=== PATIENT | male | born 1955 | race Caucasian/White ===

== ENCOUNTER 2019-03-21 06:29 | Observation (INO) ==
[2019-03-21] MEDS ORDERED: Ondansetron 4 MG/2 ML VIAL IVP ONE (06:43)
[2019-03-21] MEDS ORDERED: 0.9 % Sodium Chloride 1,000 ML IVC ONE (06:43)
--- NOTE | 2019-03-21 06:53 | Emergency Department Note ---
Disposition Clinical Impression: Pancreatitis, acute Qualifiers: Pancreatitis type: unspecified pancreatitis type Acute pancreatitis complication: unspecified Qualified Code(s): K85.90 - Acute pancreatitis without necrosis or infection, unspecified Disposition: Admitted As Inpatient Condition: Good Forms: ED Satisfaction Letter Nausea/Vomiting/Diarrhea HPI - General Chief complaint: ED Nausea/Vomiting/Diarrhea Stated complaint: n/v x 5 days Time Seen by Provider: 03/21/19 06:35 Source: patient Mode of arrival: private vehicle Limitations: no limitations Nursing Notes Reviewed: Yes Vital Signs Reviewed: Yes - History of Present Illness Pt Subjective Complaint: nausea, vomiting, diarrhea, abdominal pain Onset (ago): week(s) (1) Description of emesis: food contents, watery Number of episodes of emesis: 3 Description of Diarrhea: water Number of episodes: 3 Associated Abdominal Pain: Yes If pain, Location of pain: diffuse Radiation: diffuse Severity: mild Quality: cramping Consistency: constant Improves with: nothing Worsens with: nonthing Context: other (Started a new medication for diabetes two weeks ago and thinks this may be the cause of his symptoms.) Associated symptoms: Reports: loss of appetite, malaise, nausea/vomiting. Denies: myalgias, chest pain, cough, diaphoresis, fever/chills, headaches, rash, dysuria, shortness of breath, syncope, weakness - Related Data Home Medications Medication Instructions Recorded Confirmed Atorvastatin Calcium [Lipitor] 20 mg PO DAILY 04/24/16 06/16/16 Clopidogrel [Plavix] 75 mg PO DAILY 04/24/16 06/16/16 Linagliptin [Tradjenta] 5 mg PO DAILY 04/24/16 06/16/16 Metoprolol [Lopressor] 25 mg PO BID 04/24/16 06/16/16 Potassium Citrate [Urocit-K] 10 meq PO DAILY 04/24/16 06/16/16 lamoTRIgine [Lamictal] 200 mg PO HS 06/15/16 06/16/16 Bupropion HCl [Wellbutrin Xl] 300 mg PO DAILY 06/16/16 06/16/16 Quetiapine Fumarate [Seroquel] 50 mg PO BID 06/16/16 06/16/16 Previous Rx's Medication Instructions Recorded Azithromycin [Zithromax] 0 tab PO DAILY #6 tablet 05/18/17 Benzonatate [Tessalon] 200 mg PO TID #20 capsule 05/18/17 Doxycycline 100 mg PO BID #14 capsule 05/28/17 GuaiFENesin/Codeine [Robitussin 5 ml PO Q6HR PRN #120 liquid 05/28/17 w/Codeine] Loratadine [Allergy Relief] 10 mg PO DAILY #30 tablet 05/28/17 Clindamycin HCl [Cleocin HCl] 300 mg PO TID #30 cap 06/30/17 Cyclobenzaprine [Flexeril] 10 mg PO TID #15 tablet 08/04/18 Lidocaine Patch [Lidoderm 5% patch] 1 each TP DAILY #10 adh..patch 08/04/18 Allergies Allergy/AdvReac Type Severity Reaction Status Date / Time oxcarbazepine Allergy Itching Verified 03/11/19 04:12 [From Trileptal] oxycodone [From Percocet] Allergy Itching Verified 03/11/19 04:12 Penicillins [PCN] Allergy Itching Verified 03/11/19 04:12 Past Medical History - Past Medical History Medical history: Reports: coronary artery disease, diabetes, hyperlipidemia, hypertension, kidney stones, renal disease Surgical history: Reports: angioplasty/stent Psychiatric history: Reports: depression - Social History Smoking Status: Never smoker Smokeless Tobacco Status: No Alcohol use: Reports: none Drug use: Reports: none Physical Exam - General Limitations: no limitations General appearance: alert, in no apparent distress - Head Head exam: atraumatic, normocephalic, normal inspection - Eye Eye exam: Present: normal appearance, PERRL. Absent: scleral icterus, conjunctival injection, nystagmus, miosis, mydriasis, periorbital tenderness - ENT ENT exam: mucous membranes moist - Neck Neck exam: Present: normal inspection, full ROM, trachea midline - Chest Chest inspection: Present: normal inspection - Respiratory Respiratory exam: Present: normal lung sounds bilaterally. Absent: respiratory distress - Cardiovascular Cardiovascular exam: Present: regular rate, normal rhythm, irregular rhythm - Abdominal Exam Abdominal exam: Present: soft, tenderness, diminished bowel sounds. Absent: distention, guarding, rebound, rigidity, organomegaly, ascites, mass, pulsatile mass Abdominal tenderness: Present: LUQ, epigastrium - Extremities Exam Extremities exam: Present: normal inspection - Back Exam Back exam: Present: normal inspection - Neurological Exam Neurological exam: Present: alert, oriented X3, CN II-XII intact, normal gait - Psychiatric Psychiatric exam: Present: normal affect, anxious - Skin Skin exam: Present: warm, dry, intact, normal color Course Course Narrative: Patient to ED from home for evaluation of abdominal pain with nausea, vomiting and diarrhea for about a week. He also has had decreased appetite and some weight loss. He believes his symptoms are related to a new diabetes medication (exenatide) that he was started on about three weeks ago. He denies fever, c hills, hematemesis, melena, hematochezia, dizziness, vertigo, syncope, chest pain, shortness of breath or rash. On exam, he has normal vitals with the exception of mildly elevated blood pressure, tenderness to palpation in epigastrium, left and right upper quadrants without guarding, rebound tender ness, or other peritoneal signs. Bowel sounds are slightly decreased in all four quadrants. Labs, fluids and meds have been ordered. Labs show a mildly elevated lipase at 178. Otherwise unremarkable. We will obtain CT of the abdomen and pelvis with IV contrast to further evaluate. Case discussed with Dr. Martinez. He has had [id number] time with patient and agrees with the assessment and plan. CT shows mild edema around the pancreatic head and bilat renal stones. Plan is to admit the patient. - Reevaluation(s) Reevaluation #1: Patient feeling better but wants to eat/drink. VSS Time: 08:55 Reevaluation #2: Pt c/o nausea. Meds ordered. Hospitalist contacted. Patient accepted for admission Time: 09:56 Vital Signs Temperature 98.0 F 03/21/19 06:34 Pulse Rate 91 03/21/19 06:34 Respiratory Rate 18 03/21/19 06:34 Blood Pressure 164/68 03/21/19 06:34 O2 Sat by Pulse Oximetry 100 03/21/19 06:34 Temperature 98.0 F 03/21/19 06:34 Pulse Rate 85 03/21/19 08:11 Respiratory Rate 18 03/21/19 06:34 Blood Pressure 151/70 03/21/19 08:11 O2 Sat by Pulse Oximetry 100 03/21/19 06:34 Oxygen Delivery Oxygen Delivery Room Air Nausea/Vomiting/Diarrhea - Medical Records Medical records reviewed: Yes I reviewed the patient's medical records. - Lab Data Lab results reviewed: Yes I reviewed the patient's lab results. Lab results narrative: Laboratory Last Values WBC 11.0 K/mcL (4.3-11.1) 03/21/19 06:46 RBC 3.89 M/mcL (4.19-5.50) L 03/21/19 06:46 Hgb 13.0 g/dL (12.9-16.9) 03/21/19 06:46 Hct 38.5 % (37.5-50.1) 03/21/19 06:46 MCV 99.0 fL (83.0-100.0) 03/21/19 06:46 MCH 33.4 pg (28.0-33.3) H 03/21/19 06:46 MCHC 33.8 g/dL (31.6-35.5) 03/21/19 06:46 RDW 13.1 % (11.5-14.5) 03/21/19 06:46 Plt Count 252 K/mcL (140-400) 03/21/19 06:46 MPV 8.6 fL (9.4-12.4) L 03/21/19 06:46 Immature Gran % 1.1 % (0-4) 03/21/19 06:46 Seg Neutrophils % 59.8 % 03/21/19 06:46 25.0 % 03/21/19 06:46 10.3 % 03/21/19 06:46 3.3 % 03/21/19 06:46 0.5 % 03/21/19 06:46 6.6 K/mcL (1.6-8.9) 03/21/19 06:46 2.7 K/mcL (0.6-4.6) 03/21/19 06:46 1.1 K/mcL (0.0-1.3) 03/21/19 06:46 0.4 K/mcL (0.0-0.6) 03/21/19 06:46 0.1 K/mcL (0.0-0.2) 03/21/19 06:46 Sodium 138 mEq/L (136-145) 03/21/19 06:46 Potassium 4.2 mEq/L (3.5-5.1) 03/21/19 06:46 Chloride 105 mEq/L (98-107) 03/21/19 06:46 Carbon Dioxide 23 mEq/L (23-29) 03/21/19 06:46 BUN 23 mg/dL (8-23) 03/21/19 06:46 1.30 mg/dL (0.70-1.30) 03/21/19 06:46 Est GFR ( Amer) > 60 (> 60) 03/21/19 06:46 Est GFR (Non-Af Amer) 55 (> 60) L 03/21/19 06:46 18 (6-26) 03/21/19 06:46 Glucose 126 mg/dL (70-105) H 03/21/19 06:46 291 (280-300) 03/21/19 06:46 Calcium 9.2 mg/dL (8.6-10.3) 03/21/19 06:46 0.5 mg/dL (0.3-1.0) 03/21/19 06:46 AST 22 Units/L (13-39) 03/21/19 06:46 ALT 31 Units/L (7-52) 03/21/19 06:46 61 Units/L (34-104) 03/21/19 06:46 7.3 g/dL (6.4-8.9) 03/21/19 06:46 4.1 g/dL (3.5-5.7) 03/21/19 06:46 3.2 g/dL (2.4-3.5) 03/21/19 06:46 1.3 (1.1-2.2) 03/21/19 06:46 178 Units/L (11-82) H 03/21/19 06:46 Ur Specimen Adequacy See below A 03/21/19 08:10 Yellow (Yellow) 03/21/19 08:10 Clear (Clear) 03/21/19 08:10 6.0 pH Units (5.0-8.0) 03/21/19 08:10 Ur Specific [place] 1.018 (1.010-1.025) 03/21/19 08:10 Negative mg/dL (Neg-Trace) 03/21/19 08:10 Normal mg/dL (Normal) 03/21/19 08:10 Negative mg/dL (Negative) 03/21/19 08:10 Negative (Negative) 03/21/19 08:10 Negative (Negative) 03/21/19 08:10 Negative (Negative) 03/21/19 08:10 Normal mg/dL (Normal) 03/21/19 08:10 Ur Leukocyte Esterase Negative (Negative) 03/21/19 08:10 Ur Culture Indicated? NO (NO) 03/21/19 08:10 Result diagrams: 03/21/19 06:46 03/21/19 06:46 Lab Results 03/21/19 03/21/19 Range/Units 06:46 06:46 WBC 11.0 (4.3-11.1) K/mcL RBC 3.89 L (4.19-5.50) M/mcL Hgb 13.0 (12.9-16.9) g/dL Hct 38.5 (37.5-50.1) % MCV 99.0 (83.0-100.0) fL MCH 33.4 H (28.0-33.3) pg MCHC 33.8 (31.6-35.5) g/dL RDW 13.1 (11.5-14.5) % Plt Count 252 (140-400) K/mcL MPV 8.6 L (9.4-12.4) fL Immature Gran % 1.1 (0-4) % Seg Neutrophils % 59.8 % Lymphocytes % 25.0 % Monocytes % 10.3 % Eosinophils % 3.3 % Basophils % 0.5 % Neutrophils # 6.6 (1.6-8.9) K/mcL Lymphocytes # 2.7 (0.6-4.6) K/mcL Monocytes # 1.1 (0.0-1.3) K/mcL Eosinophils # 0.4 (0.0-0.6) K/mcL Basophils # 0.1 (0.0-0.2) K/mcL Sodium 138 (136-145) mEq/L Potassium 4.2 (3.5-5.1) mEq/L Chloride 105 (98-107) mEq/L Carbon Dioxide 23 (23-29) mEq/L BUN 23 (8-23) mg/dL Creatinine 1.30 (0.70-1.30) mg/dL Est GFR ( Amer) > 60 (> 60) Est GFR (Non-Af Amer) 55 L (> 60) BUN/Creatinine Ratio 18 (6-26) Glucose 126 H (70-105) mg/dL Calculated Osmolality 291 (280-300) Calcium 9.2 (8.6-10.3) mg/dL Total Bilirubin 0.5 (0.3-1.0) mg/dL AST 22 (13-39) Units/L ALT 31 (7-52) Units/L Alkaline Phosphatase 61 (34-104) Units/L Serum Total Protein 7.3 (6.4-8.9) g/dL Albumin 4.1 (3.5-5.7) g/dL Globulin 3.2 (2.4-3.5) g/dL Albumin/Globulin Ratio 1.3 (1.1-2.2) Lipase 178 H (11-82) Units/L - Radiology Data Radiology results reviewed: Yes I reviewed the patient's radiology results. Abdomen/Pelvis CT 03/21/19 08:22 IMPRESSION: 1. Minimal pancreatic edema involving the tail of the pancreas. Correlate clinical evidence of acute pancreatitis. 2. Nonobstructing bilateral renal calculi. D/ / 03/21/2019 09:12:45 Alex Galindo MD / [facility] Interpreting Provider: Alex Galindo MD
[2019-03-21 06:55] LABS: Basophils # 0.1 K/mcL (0.0-0.2); Basophils % 0.5 %; Eosinophils # 0.4 K/mcL (0.0-0.6); Eosinophils % 3.3 %; Hematocrit 38.5 % (37.5-50.1); Immature Granulocytes % 1.1 % (0-4); Lymphocytes # 2.7 K/mcL (0.6-4.6); Mean Corpuscular HGB Conc 33.8 g/dL (31.6-35.5); Mean Corpuscular Hemoglobin 33.4 pg (28.0-33.3); Mean Platelet Volume 8.6 fL (9.4-12.4); Monocytes # 1.1 K/mcL (0.0-1.3); Monocytes % 10.3 %; Neutrophils # 6.6 K/mcL (1.6-8.9); Platelet Count 252 K/mcL (140-400); Red Blood Count 3.89 M/mcL (4.19-5.50); Red Cell Distribution Width 13.1 % (11.5-14.5); Segmented Neutrophils % 59.8 %
[2019-03-21 07:16] LABS: Alanine Aminotransferase 31 Units/L (7-52); Albumin 4.1 g/dL (3.5-5.7); Albumin/Globulin Ratio 1.3 (1.1-2.2); Alkaline Phosphatase 61 Units/L (34-104); Aspartate Amino Transferase 22 Units/L (13-39); BUN/Creatinine Ratio 18 (6-26); Bilirubin,Total 0.5 mg/dL (0.3-1.0); Blood Urea Nitrogen 23 mg/dL (8-23); Calcium 9.2 mg/dL (8.6-10.3); Carbon Dioxide 23 mEq/L (23-29); Chloride 105 mEq/L (98-107); Globulin 3.2 g/dL (2.4-3.5); Glucose 126 mg/dL (70-105); Lipase 178 Units/L (11-82); Osmolality,Calculated 291 (280-300); Potassium 4.2 mEq/L (3.5-5.1); Sodium 138 mEq/L (136-145); Total Protein 7.3 g/dL (6.4-8.9); eGFR For Non-African Americans 55 (> 60)
[2019-03-21 08:20] LABS: Bilirubin,Urine Negative (Negative); Blood,Urine Negative (Negative); Clarity,Urine Clear (Clear); Color,Urine Yellow (Yellow); Glucose,Urine (UA) Normal (Normal); Ketones,Urine Negative (Negative); Leukocyte Esterase,Urine Negative (Negative); Nitrite,Urine Negative (Negative); Protein,Urine Negative (Neg-Trace); Specific Gravity,Urine 1.018 (1.010-1.025); Urobilinogen,Urine Normal (Normal)
[2019-03-21] MEDS ORDERED: Isovue-370 500 ML BOTTLE IVP ONE (08:22)
--- NOTE | 2019-03-21 09:19 | Emergency Department Note ---
Disposition Clinical Impression: Pancreatitis, acute Disposition: Admitted As Inpatient Condition: Good General Adult HPI - General Chief complaint: ED Nausea/Vomiting/Diarrhea Stated complaint: n/v x 5 days Time Seen by Provider: 03/21/19 06:35 Source: patient Mode of arrival: private vehicle Limitations: no limitations Nursing Notes Reviewed: Yes Vital Signs Reviewed: Yes - History of Present Illness Pain Scale: 7 - Related Data Home Medications Medication Instructions Recorded Confirmed Clopidogrel [Plavix] 75 mg PO DAILY 04/24/16 03/21/19 Linagliptin [Tradjenta] 5 mg PO DAILY 04/24/16 03/21/19 Metoprolol [Lopressor] 25 mg PO BID 04/24/16 03/21/19 Bupropion HCl [Wellbutrin Xl] 300 mg PO DAILY 06/16/16 03/21/19 DiphenhydraMINE [Benadryl] 25 - 50 mg PO DAILY PRN 03/21/19 03/21/19 Exenatide Microspheres [Bydureon 2 mg SQ LEON 03/21/19 03/21/19 Pen] Losartan [Cozaar] 25 mg PO DAILY 03/21/19 03/21/19 Pravastatin Sodium 10 mg PO DAILY 03/21/19 03/21/19 glipiZIDE [Glucotrol] 5 mg PO DAILY 03/21/19 03/21/19 lamoTRIgine [Lamotrigine] 200 mg PO DAILY 03/21/19 03/21/19 raNITIdine HCl [Zantac] 150 mg PO BID PRN 03/21/19 03/21/19 Allergies Allergy/AdvReac Type Severity Reaction Status Date / Time oxcarbazepine Allergy "HEADACHE, Verified 03/21/19 13:54 [From Trileptal] BLOOD PRESSURE WAS SOMETHING" oxycodone [From Percocet] Allergy "RASH, Verified 03/21/19 13:54 ITCHING" Penicillins [PCN] Allergy "RASH, Verified 03/21/19 13:54 ITCHING" Past Medical History - Past Medical History Medical history: Reports: coronary artery disease, diabetes, hyperlipidemia, hypertension, kidney stones, renal disease Surgical history: Reports: angioplasty/stent Psychiatric history: Reports: depression - Social History Smoking Status: Never smoker Smokeless Tobacco Status: No Alcohol use: Reports: none Drug use: Reports: none Physical Exam - General Limitations: no limitations General appearance: alert, in no apparent distress Course Vital Signs Temperature 98.0 F 03/21/19 06:34 Pulse Rate 91 03/21/19 06:34 Respiratory Rate 18 03/21/19 06:34 Blood Pressure 164/68 03/21/19 06:34 O2 Sat by Pulse Oximetry 100 03/21/19 06:34 Temperature 98.8 F 03/21/19 15:22 Pulse Rate 89 03/21/19 15:22 Respiratory Rate 15 03/21/19 15:22 Blood Pressure 126/63 03/21/19 15:22 O2 Sat by Pulse Oximetry 97 03/21/19 15:22 Oxygen Delivery Oxygen Delivery Room Air Medical Decision Making - MDM Narrative Medical decision making narrative: Abdomen/Pelvis CT 03/21/19 08:22 IMPRESSION: 1. Minimal pancreatic edema involving the tail of the pancreas. Correlate clinical evidence of acute pancreatitis. 2. Nonobstructing bilateral renal calculi. D/ / 03/21/2019 09:12:45 Alex Galindo MD / [facility] Interpreting Provider: Alex Galindo MD 0920 hrs.: His CT does look like pancreatitis as well as his lipase. We will bring him into the hospital. - Lab Data Result diagrams: 03/21/19 06:46 03/21/19 06:46 Lab Results 03/21/19 03/21/19 03/21/19 Range/Units 06:35 06:46 06:46 WBC 11.0 (4.3-11.1) K/mcL RBC 3.89 L (4.19-5.50) M/mcL Hgb 13.0 (12.9-16.9) g/dL Hct 38.5 (37.5-50.1) % MCV 99.0 (83.0-100.0) fL MCH 33.4 H (28.0-33.3) pg MCHC 33.8 (31.6-35.5) g/dL RDW 13.1 (11.5-14.5) % Plt Count 252 (140-400) K/mcL MPV 8.6 L (9.4-12.4) fL Immature Gran % 1.1 (0-4) % Seg Neutrophils % 59.8 % Lymphocytes % 25.0 % Monocytes % 10.3 % Eosinophils % 3.3 % Basophils % 0.5 % Neutrophils # 6.6 (1.6-8.9) K/mcL Lymphocytes # 2.7 (0.6-4.6) K/mcL Monocytes # 1.1 (0.0-1.3) K/mcL Eosinophils # 0.4 (0.0-0.6) K/mcL Basophils # 0.1 (0.0-0.2) K/mcL Sodium 138 (136-145) mEq/L Potassium 4.2 (3.5-5.1) mEq/L Chloride 105 (98-107) mEq/L Carbon Dioxide 23 (23-29) mEq/L BUN 23 (8-23) mg/dL Creatinine 1.30 (0.70-1.30) mg/dL Est GFR ( Amer) > 60 (> 60) Est GFR (Non-Af Amer) 55 L (> 60) BUN/Creatinine Ratio 18 (6-26) Glucose 126 H (70-105) mg/dL POC Glucose 103 H (70-99) mg/dL Est Mean Plasma Glucose mg/dl Hemoglobin A1c ( - 5.6) % Calculated Osmolality 291 (280-300) Calcium 9.2 (8.6-10.3) mg/dL Total Bilirubin 0.5 (0.3-1.0) mg/dL AST 22 (13-39) Units/L ALT 31 (7-52) Units/L Alkaline Phosphatase 61 (34-104) Units/L Serum Total Protein 7.3 (6.4-8.9) g/dL Albumin 4.1 (3.5-5.7) g/dL Globulin 3.2 (2.4-3.5) g/dL Albumin/Globulin Ratio 1.3 (1.1-2.2) Lipase 178 H (11-82) Units/L Ur Specimen Adequacy Urine Color (Yellow) Urine Clarity (Clear) Urine pH (5.0-8.0) pH Units Ur Specific [place] (1.010-1.025) Urine Protein (Neg-Trace) mg/dL Urine Glucose (UA) (Normal) mg/dL Urine Ketones (Negative) mg/dL Urine Blood (Negative) Urine Nitrite (Negative) Urine Bilirubin (Negative) Urine Urobilinogen (Normal) mg/dL Ur Leukocyte Esterase (Negative) Ur Culture Indicated? (NO) 03/21/19 03/21/19 Range/Units 06:46 08:10 WBC (4.3-11.1) K/mcL RBC (4.19-5.50) M/mcL Hgb (12.9-16.9) g/dL Hct (37.5-50.1) % MCV (83.0-100.0) fL MCH (28.0-33.3) pg MCHC (31.6-35.5) g/dL RDW (11.5-14.5) % Plt Count (140-400) K/mcL MPV (9.4-12.4) fL Immature Gran % (0-4) % Seg Neutrophils % % Lymphocytes % % Monocytes % % Eosinophils % % Basophils % % Neutrophils # (1.6-8.9) K/mcL Lymphocytes # (0.6-4.6) K/mcL Monocytes # (0.0-1.3) K/mcL Eosinophils # (0.0-0.6) K/mcL Basophils # (0.0-0.2) K/mcL Sodium (136-145) mEq/L Potassium (3.5-5.1) mEq/L Chloride (98-107) mEq/L Carbon Dioxide (23-29) mEq/L BUN (8-23) mg/dL Creatinine (0.70-1.30) mg/dL Est GFR ( Amer) (> 60) Est GFR (Non-Af Amer) (> 60) BUN/Creatinine Ratio (6-26) Glucose (70-105) mg/dL POC Glucose (70-99) mg/dL Est Mean Plasma Glucose 186 mg/dl Hemoglobin A1c 8.1 H ( - 5.6) % Calculated Osmolality (280-300) Calcium (8.6-10.3) mg/dL Total Bilirubin (0.3-1.0) mg/dL AST (13-39) Units/L ALT (7-52) Units/L Alkaline Phosphatase (34-104) Units/L Serum Total Protein (6.4-8.9) g/dL Albumin (3.5-5.7) g/dL Globulin (2.4-3.5) g/dL Albumin/Globulin Ratio (1.1-2.2) Lipase (11-82) Units/L Ur Specimen Adequacy See below A Urine Color Yellow (Yellow) Urine Clarity Clear (Clear) Urine pH 6.0 (5.0-8.0) pH Units Ur Specific [place] 1.018 (1.010-1.025) Urine Protein Negative (Neg-Trace) mg/dL Urine Glucose (UA) Normal (Normal) mg/dL Urine Ketones Negative (Negative) mg/dL Urine Blood Negative (Negative) Urine Nitrite Negative (Negative) Urine Bilirubin Negative (Negative) Urine Urobilinogen Normal (Normal) mg/dL Ur Leukocyte Esterase Negative (Negative) Ur Culture Indicated? NO (NO) Attestation Statement - Attestation Attestation: This documentation is done with the assistance of Dragon dictation. Despite efforts made to ensure accuracy, there may be inaccuracies in technology director or spelling and typographical errors. I have personally performed a face to face evaluation on this patient. I have reviewed and agree with the care plan. History and Exam by me shows: Patient seen and evaluated by Hortencia Dumont and myself, I agree with her evaluation management plan. Patient's having some nausea vomiting and watery stool. Has started a new insulin for his diabetes is uncertain if this could be related or not. He does have elevation in his lipase no history of pancreatitis per him he does have elevated cholesterol. Going to do CT of his abdomen and reassess and determine admission versus home. He is in agreement with this plan.
[2019-03-21] MEDS ORDERED: Naloxone 0.4 MG/ML INJ IVP PRN (09:57)
[2019-03-21] MEDS ORDERED: traMADol 50 MG TABLET PO PRN (10:01)
[2019-03-21] MEDS ORDERED: Ketorolac 15 MG/ML VIAL IVP PRN (10:01)
[2019-03-21] MEDS ORDERED: Dextrose Gel 15 GM/37.5 ML TUBE PO PRN ×2 (10:03)
[2019-03-21] MEDS ORDERED: D5% in Water 1,000 ML IVC PRN (10:03)
[2019-03-21] MEDS ORDERED: *HR* Dextrose 50 % in Water (Syg) 50 ML SYRINGE IVP PRN (10:03)
[2019-03-21] MEDS ORDERED: Promethazine 25 MG in 0.9 % Sodium Chloride 50 ML IVPB ONE (10:10)
[2019-03-21] MEDS ORDERED: Ondansetron 4 MG/2 ML VIAL IVP PRN (10:59)
[2019-03-21 11:04] LABS: Estimated Average Glucose 186 mg/dl; Hemoglobin A1C 8.1 %
--- NOTE | 2019-03-21 11:04 | Anesthesia Evaluation PreOp ---
Date of Encounter: 03/21/19 Time of Encounter: 10:57 - Past History Planned Operation: EGD Alcohol Use: none Drug use: none Medications and Allergies Atorvastatin Calcium [Lipitor] 20 mg PO DAILY 04/24/16 [History] Clopidogrel [Plavix] 75 mg PO DAILY 04/24/16 [History] Linagliptin [Tradjenta] 5 mg PO DAILY 04/24/16 [History] Metoprolol [Lopressor] 25 mg PO BID 04/24/16 [History] Potassium Citrate [Urocit-K] 10 meq PO DAILY 04/24/16 [History] lamoTRIgine [Lamictal] 200 mg PO HS 06/15/16 [History] Bupropion HCl [Wellbutrin Xl] 300 mg PO DAILY 06/16/16 [History] Quetiapine Fumarate [Seroquel] 50 mg PO BID 06/16/16 [History] Azithromycin [Zithromax] 0 tab PO DAILY #6 tablet 05/18/17 [Rx] Benzonatate [Tessalon] 200 mg PO TID #20 capsule 05/18/17 [Rx] Doxycycline 100 mg PO BID #14 capsule 05/28/17 [Rx] GuaiFENesin/Codeine [Robitussin w/Codeine] 5 ml PO Q6HR PRN #120 liquid 05/28/17 [Rx] Loratadine [Allergy Relief] 10 mg PO DAILY #30 tablet 05/28/17 [Rx] Clindamycin HCl [Cleocin HCl] 300 mg PO TID #30 cap 06/30/17 [Rx] Cyclobenzaprine [Flexeril] 10 mg PO TID #15 tablet 08/04/18 [Rx] Lidocaine Patch [Lidoderm 5% patch] 1 each TP DAILY #10 adh..patch 08/04/18 [Rx] Bydureon Pen SQ 03/21/19 [History] Allergy/AdvReac Type Severity Reaction Status Date / Time oxcarbazepine Allergy Itching Verified 03/11/19 04:12 [From Trileptal] oxycodone [From Percocet] Allergy Itching Verified 03/11/19 04:12 Penicillins [PCN] Allergy Itching Verified 03/11/19 04:12 Anesthesia Results - Labs 03/21/19 06:46 03/21/19 06:46 - Imaging EKG: report reviewed (SINUS RHYTHM RIGHT BUNDLE BRANCH BLOCK) Anesthesia Exam Vital Signs/O2 Sat, Most Current Temp Pulse Resp BP Pulse Ox 98.0 F 85 16 147/90 100 03/21/19 06:34 03/21/19 08:11 03/21/19 10:52 03/21/19 10:52 03/21/19 06:34 NPO (# of Hours): > 8 hrs Pain Scale: 0 Pain Scale Used: Numeric (1 - 10)
--- NOTE | 2019-03-21 11:09 | Internal Med History&Physical ---
Date of Encounter: 03/21/19 Time of Encounter: 10:00 Internal Medicine - H&P: HPI Chief complaint: Intermittent nausea and vomiting and abdominal pain for 3 days History of present illness: Mr. Pickard is a 63 year old male with pmh of diabetes, dyslipidemia recently started on weekly exenatide injections 3 weeks ago presenting with complaints of nausea, vomiting , abdominal pain and diarrhea of about 2 days duration. Patient notes his A1c went up to 8.2 from 6.8 and his PCP decided to switch him to weekly exenatide injections. He received the first shot 3 sundays ago and has received his most recent one yesterday. He says he has had intermittent nausea, vomiting and abdominal pain after each shot, but over the last 24 hrs, he has been having severe epigastric pain with nausea and vomiting that made him come to the ER. In the ER, he had an elevated lipase and a CT abdomen showing acute pancreatitis and he is being admitted for further management Past Med Surg Social Fam HX - Past Medical History Medical history: coronary artery disease, diabetes, hyperlipidemia, hypertension, kidney stones, renal disease Additional medical history: stage three renal failure Psychiatric history: depression - Past Surgical History Surgical History: angioplasty/stent Additional surgical history: kidney stone removal, HEART STENT - Social History Smoking Status: Never smoker Smokeless Tobacco Status: No Alcohol use: none Drug use: none - Family History Mother Living Status: Hx Family Cardiac Disorders: Yes (CAD, [place]) Father Living Status: Hx Family Cancer: Yes (Lung Cancer) Internal Medicine - H&P: Meds Atorvastatin Calcium [Lipitor] 20 mg PO DAILY 04/24/16 [History] Clopidogrel [Plavix] 75 mg PO DAILY 04/24/16 [History] Linagliptin [Tradjenta] 5 mg PO DAILY 04/24/16 [History] Metoprolol [Lopressor] 25 mg PO BID 04/24/16 [History] Potassium Citrate [Urocit-K] 10 meq PO DAILY 04/24/16 [History] lamoTRIgine [Lamictal] 200 mg PO HS 06/15/16 [History] Bupropion HCl [Wellbutrin Xl] 300 mg PO DAILY 06/16/16 [History] Quetiapine Fumarate [Seroquel] 50 mg PO BID 06/16/16 [History] Azithromycin [Zithromax] 0 tab PO DAILY #6 tablet 05/18/17 [Rx] Benzonatate [Tessalon] 200 mg PO TID #20 capsule 05/18/17 [Rx] Doxycycline 100 mg PO BID #14 capsule 05/28/17 [Rx] GuaiFENesin/Codeine [Robitussin w/Codeine] 5 ml PO Q6HR PRN #120 liquid 05/28/17 [Rx] Loratadine [Allergy Relief] 10 mg PO DAILY #30 tablet 05/28/17 [Rx] Clindamycin HCl [Cleocin HCl] 300 mg PO TID #30 cap 06/30/17 [Rx] Cyclobenzaprine [Flexeril] 10 mg PO TID #15 tablet 08/04/18 [Rx] Lidocaine Patch [Lidoderm 5% patch] 1 each TP DAILY #10 adh..patch 08/04/18 [Rx] Bydureon Pen SQ 03/21/19 [History] Allergy/AdvReac Type Severity Reaction Status Date / Time oxcarbazepine Allergy Itching Verified 03/11/19 04:12 [From Trileptal] oxycodone [From Percocet] Allergy Itching Verified 03/11/19 04:12 Penicillins [PCN] Allergy Itching Verified 03/11/19 04:12 All Systems PM: A 10-system review of systems was performed and is negative for pertinent findings except as documented above in the HPI. - Constitutional Constitutional: no chills, no fever(s), no night sweats - EENT Eyes: no change in vision, no discharge, no pain, no photophobia Ears: no ear discharge, no ear pain, no tinnitus Nose, mouth and throat: no dysphagia, no nasal discharge, no neck pain, no sore throat - Cardiovascular Cardiovascular ROS IM: no chest pain, no diaphoresis, no dyspnea, no lightheadedness, no palpitations, no syncope - Respiratory Respiratory: no cough, no dyspnea, no wheezing, no excessive phlegm production - Gastrointestinal Gastrointestinal: abdominal pain, nausea, vomiting, no diarrhea, no hematemesis, no hematochezia, no melena - Musculoskeletal Musculoskeletal ROS IM: no numbness, no tingling - Integumentary Integumentary IM: no rash, no unusual bruising - Neurological Neurological ROS: no confusion, no convulsions, no focal weakness, no numbness, no tingling, no tremor(s) - Hematologic/Lymphatic Hematologic/Lymphatic: no easy bruising - Constitutional Vitals: Temp Pulse Resp BP Pulse Ox 98.0 F 85 16 147/90 100 03/21/19 06:34 03/21/19 08:11 03/21/19 10:52 03/21/19 10:52 03/21/19 06:34 Exam: NAD - Head Head exam: Present: atraumatic, normocephalic - Eye Eye exam: Present: PERRL, conjuntiva pink, sclera anicteric Pupils: Present: PERRL - Neck Neck exam general surgery: Present: supple, trachea midline. Absent: lymphadenopathy - Respiratory Respiratory exam: Present: CTAB. Absent: accessory muscle use, rales, rhonchi, wheezes - Cardiovascular Cardiovascular exam: Present: RRR, +S1, +S2. Absent: diastolic murmur, gallop, rubs, systolic murmur - GI/Abdominal GI/Abdominal exam: Present: normal bowel sounds, soft, tenderness, no peritoneal signs. Absent: distended Additional comments: Epigastric tenderness - Extremities Exam Extremities exam: Present: warm, radial pulses palpable and symmetrical. Abse nt: calf tenderness, cyanotic, pedal edema - Neurological Exam Neurological exam: Present: CN II-XII intact, oriented X3, no focal deficits. Absent: pronater drift, facial droop, speech deficit - Skin Skin exam: Present: dry, intact Internal Med - H&P Results - Labs CBC & Chem 7: 03/21/19 06:46 03/21/19 06:46 Labs: Short CBC 03/21/19 Range/Units 06:46 WBC 11.0 (4.3-11.1) K/mcL Hgb 13.0 (12.9-16.9) g/dL Hct 38.5 (37.5-50.1) % Plt Count 252 (140-400) K/mcL Neutrophils # 6.6 (1.6-8.9) K/mcL BMP 03/21/19 06:46 Sodium 138 Potassium 4.2 Chloride 105 Carbon Dioxide 23 BUN 23 Creatinine 1.30 Glucose 126 H Calcium 9.2 Liver Function 03/21/19 Range/Units 06:46 Total Bilirubin 0.5 (0.3-1.0) mg/dL AST 22 (13-39) Units/L ALT 31 (7-52) Units/L Alkaline Phosphatase 61 (34-104) Units/L Albumin 4.1 (3.5-5.7) g/dL Urine 03/21/19 Range/Units 08:10 Urine Color Yellow (Yellow) Urine Clarity Clear (Clear) Urine pH 6.0 (5.0-8.0) pH Units Ur Specific [place] 1.018 (1.010-1.025) Urine Protein Negative (Neg-Trace) mg/dL Urine Glucose (UA) Normal (Normal) mg/dL - Impressions ITS Impressions Abdomen/Pelvis CT 03/21/19 08:22 IMPRESSION: 1. Minimal pancreatic edema involving the tail of the pancreas. Correlate clinical evidence of acute pancreatitis. 2. Nonobstructing bilateral renal calculi. D/ / 03/21/2019 09:12:45 Alex Galindo MD / [facility] Interpreting Provider: Alex Galindo MD - Assessment and Plan (1) Pancreatitis, acute Current Visit: Yes Status: Acute Assessment and plan: Pt presents with epigastric pain and nausea and vomiting. Likely medication induced from exenatide. Denies any alcohol abuse CT abdomen shows acute pancreatitis. Will start on clear liquids, advance diet as tolerated, pain control Possible discharge in am if tolerating diet Qualifiers: Pancreatitis type: unspecified pancreatitis type Acute pancreatitis complication: unspecified Qualified Code(s): K85.90 - Acute pancreatitis witho ut necrosis or infection, unspecified (2) CKD (chronic kidney disease) stage 3, GFR 30-59 ml/min Current Visit: Yes Status: Acute Assessment and plan: No acute exacerbaton. Continue IV fluids. Avoid nephrotoxic meds (3) Hyperlipidemia Current Visit: Yes Status: Acute Assessment and plan: Continue home meds Qualifiers: Hyperlipidemia type: other hyperlipidemia Qualified Code(s): E78.49 - Other hyperlipidemia; E78.4 - Other hyperlipidemia (4) Diabetes Current Visit: Yes Status: Acute Assessment and plan: Continue insulin and monitor fingersticks. Will need to discontinue exenatide Qualifiers: Qualified Code(s): E11.9 - Type 2 diabetes mellitus without complications (5) DVT prophylaxis Current Visit: Yes Status: Acute Assessment and plan: Heparn sc - Time Spent With Patient Total time spent is greater than 50% in coordination of care (as documented) at patient's floor/unit and/or counseling patient:
[2019-03-21] MEDS ORDERED: Acetaminophen 325 MG TABLET PO PRN (11:11)
[2019-03-21] MEDS: 0.9 % Sodium Chloride 1,000 ML IVC SCH ×2 (11:42→22:40)
[2019-03-21] MEDS ORDERED: Insulin LISPRO 300 UNITS/3 ML VIAL SQ SCH (12:00)
[2019-03-21] MEDS: Insulin LISPRO 300 UNITS/3 ML VIAL SQ SCH ×2 (12:23→16:34)
[2019-03-21] MEDS: *HR* Heparin 5,000 UNIT/ML VIAL SQ SCH (17:37)
[2019-03-22 04:05] LABS: Basophils % 0.5 %; Eosinophils # 0.4 K/mcL (0.0-0.6); Eosinophils % 4.1 %; Hematocrit 35.3 % (37.5-50.1); Hemoglobin 11.6 g/dL (12.9-16.9); Lymphocytes # 2.4 K/mcL (0.6-4.6); Lymphocytes % 26.7 %; Mean Corpuscular HGB Conc 32.9 g/dL (31.6-35.5); Mean Corpuscular Hemoglobin 32.6 pg (28.0-33.3); Mean Corpuscular Volume 99.2 fL (83.0-100.0); Mean Platelet Volume 8.7 fL (9.4-12.4); Monocytes # 0.9 K/mcL (0.0-1.3); Monocytes % 10.4 %; Neutrophils # 5.1 K/mcL (1.6-8.9); Platelet Count 222 K/mcL (140-400); Red Blood Count 3.56 M/mcL (4.19-5.50); Red Cell Distribution Width 13.2 % (11.5-14.5); Segmented Neutrophils % 57.3 %
[2019-03-22 04:28] LABS: BUN/Creatinine Ratio 10 (6-26); Blood Urea Nitrogen 12 mg/dL (8-23); Calcium 8.2 mg/dL (8.6-10.3); Carbon Dioxide 24 mEq/L (23-29); Chloride 108 mEq/L (98-107); Glucose 103 mg/dL (70-105); Magnesium 1.4 mg/dL (1.6-2.6); Osmolality,Calculated 296 (280-300); Potassium 3.6 mEq/L (3.5-5.1); Sodium 143 mEq/L (136-145); eGFR For Non-African Americans > 60 (> 60)
[2019-03-22] MEDS: *HR* Heparin 5,000 UNIT/ML VIAL SQ SCH (06:53)
[2019-03-22 07:35] VITALS: BP 130/69
[2019-03-22] MEDS ORDERED: Famotidine 20 MG TABLET PO PRN (08:07)
[2019-03-22] MEDS: Insulin LISPRO 300 UNITS/3 ML VIAL SQ SCH (08:38)
[2019-03-22] MEDS ORDERED: BuPROPion XL (24 HR) 150 MG TABLET PO SCH (09:00)
[2019-03-22] MEDS ORDERED: lamoTRIgine 100 MG TABLET PO SCH (09:00)
[2019-03-22] MEDS: 0.9 % Sodium Chloride 1,000 ML IVC SCH (09:53)
[2019-03-22] MEDS ORDERED: Ringers Solution, Lactated 1,000 ML IVC SCH (10:30)
--- NOTE | 2019-03-22 10:31 | Internal Med Progress Note ---
Hospitalist Progress Note - Encounter Date of Encounter: 03/22/19 - Exam Vitals: Temp Pulse Resp BP Pulse Ox 98.5 F 99 15 130/69 95 03/22/19 07:35 03/22/19 07:35 03/22/19 07:35 03/22/19 07:35 03/22/19 07:35 - Time Spent with Patient Total time spent is greater than 50% in coordination of care (as documented) at patient's floor/unit and/or counseling patient: Internal Medicine: Result - Labs CBC & Chem 7: 03/22/19 03:44 03/22/19 03:44 Labs: Short CBC 03/22/19 Range/Units 03:44 WBC 8.9 (4.3-11.1) K/mcL Hgb 11.6 L (12.9-16.9) g/dL Hct 35.3 L (37.5-50.1) % Plt Count 222 (140-400) K/mcL Neutrophils # 5.1 (1.6-8.9) K/mcL BMP 03/22/19 03:44 Sodium 143 Potassium 3.6 Chloride 108 H Carbon Dioxide 24 BUN 12 Creatinine 1.15 Glucose 103 Calcium 8.2 L Consult Discharge Plan - Plan Referrals: Esequiel Jackson MD [Primary Care Provider] -
--- NOTE | 2019-03-22 11:34 | Discharge Summary ---
<Clemente Coreas - Last Filed: 03/22/19 11:32> Date of Encounter: 03/22/19 Time of Encounter: 11:32 - Discharge Diagnosis (1) Pancreatitis, acute Priority: Primary Status: Acute Qualifiers: Pancreatitis type: drug induced Acute pancreatitis complication: no infection or necrosis Qualified Code(s): K85.30 - Drug induced acute pancreatitis without necrosis or infection (2) CKD (chronic kidney disease) stage 3, GFR 30-59 ml/min Priority: Secondary Status: Chronic (3) Diabetes Priority: Secondary Status: Chronic Qualifiers: Diabetes mellitus type: type 2 Diabetes mellitus fdc insulin use: without fdc use Diabetes mellitus complication status: without complication Qualified Code(s): E11.9 - Type 2 diabetes mellitus without complications (4) DVT prophylaxis Priority: Secondary Status: Acute (5) Hyperlipidemia Priority: Secondary Status: Chronic Qualifiers: Hyperlipidemia type: other hyperlipidemia Qualified Code(s): E78.49 - Other hyperlipidemia; E78.4 - Other hyperlipidemia Hospital course: Mr. Pickard is a 63 year old male presented with chief complaint nausea vomiting and abdominal pain for 3 days. Patient has history of diabetes and was started on weekly exenatide injections 2 weeks ago. Patient's A1c went up to 8.2 from 6.8 and this is when exenatide was started. In the emergency department patient had elevated lipase and CT abdomen and pelvis showed acute pancreatitis. There was no evidence of necrosis or infection. He was started on IV fluids and clear liquid diet. Patient ate ice cream last night without any problems. This morning he tolerated his clear liquid diet as well as more ice cream. He reports very mild abdominal pain. He is able to ambulate independently. Patient was educated on eating a low-fat diet on discharge and avoiding fatty foods for the next week. He will follow-up with his PCP within the next 7 days. Discharge discussed with: patient - Time Spent with Patient Total time spent providing and/or coordinating discharge services: - Discharge Medications Prescriptions: New Ondansetron ODT [Zofran ODT] 4 mg SL Q4HR PRN #28 tab.rapdis PRN Reason: Nausea Continued Clopidogrel [Plavix] 75 mg PO DAILY Metoprolol [Lopressor] 25 mg PO BID Linagliptin [Tradjenta] 5 mg PO DAILY Bupropion HCl [Wellbutrin Xl] 300 mg PO DAILY DiphenhydraMINE [Benadryl] 25 - 50 mg PO DAILY PRN PRN Reason: Itching glipiZIDE [Glucotrol] 5 mg PO DAILY lamoTRIgine [Lamotrigine] 200 mg PO DAILY Losartan [Cozaar] 25 mg PO DAILY Pravastatin Sodium 10 mg PO DAILY raNITIdine HCl [Zantac] 150 mg PO BID PRN PRN Reason: GERD Discontinued Exenatide Microspheres [Bydureon Pen] 2 mg SQ LEON Home Medications: Clopidogrel [Plavix] 75 mg PO DAILY 04/24/16 [History] Linagliptin [Tradjenta] 5 mg PO DAILY 04/24/16 [History] Metoprolol [Lopressor] 25 mg PO BID 04/24/16 [History] Bupropion HCl [Wellbutrin Xl] 300 mg PO DAILY 06/16/16 [History] DiphenhydraMINE [Benadryl] 25 - 50 mg PO DAILY PRN 03/21/19 [History] Losartan [Cozaar] 25 mg PO DAILY 03/21/19 [History] Pravastatin Sodium 10 mg PO DAILY 03/21/19 [History] glipiZIDE [Glucotrol] 5 mg PO DAILY 03/21/19 [History] lamoTRIgine [Lamotrigine] 200 mg PO DAILY 03/21/19 [History] raNITIdine HCl [Zantac] 150 mg PO BID PRN 03/21/19 [History] Ondansetron ODT [Zofran ODT] 4 mg SL Q4HR PRN #28 tab.rapdis 03/22/19 [Rx] Allergies/Adverse Reactions: Allergy/AdvReac Type Severity Reaction Status Date / Time oxcarbazepine Allergy "HEADACHE, Verified 03/21/19 13:54 [From Trileptal] BLOOD PRESSURE WAS SOMETHING" oxycodone [From Percocet] Allergy "RASH, Verified 03/21/19 13:54 ITCHING" Penicillins [PCN] Allergy "RASH, Verified 03/21/19 13:54 ITCHING" Date of admission: 03/21/19 10:35 Primary care physician: Esequiel Jackson Consults: 03/21/19 11:34 Consult to Nutrition [CONS] Routine Comment: Consulting Provider: NUTRITION Reason for Dietary Consult: MST Score Discharging clinician: Clemente Coreas Anticipated date of discharge: 03/22/19 - Constitutional Vitals: Temp Pulse Resp BP Pulse Ox 98.5 F 99 15 130/69 95 03/22/19 07:35 03/22/19 07:35 03/22/19 07:35 03/22/19 07:35 03/22/19 07:35 Exam: General: pleasant, without distress Cardiovascualr: Regular rate and rhythm with no murmur, absent gallops or rubs, absent pedal edema, radial pulses 2 out of 4 Lungs: Clear to auscultation bilaterally, not in respiratory distress Abdomen: Soft nontender, nondistended positive bowel sounds, absent hepatomegaly Skin: warm and dry, absent rash, absent open wounds and nodules MSK: absent clubbing, cyanosis, joints without swelling Neuro: Cranial nerves II through XII intact, UE and LE sensation equal bilaterally, UE and LEstrength 5/5, alert oriented 3, Psych: good insight and judgment - Patient Status Disposition: Home, Self-Care Condition: Good Functional capacity at discharge: independent ambulation Overall status at discharge: patient is progressing back to baseline - Discharge Instructions Follow Up With: Ofelia Lema MATHEMATICS TEACHER [Advanced Practice Nurse] - 03/25/19 3:00 pm (Please arrive at 2:30 for paperwork. You will need to bring a photo ID, insurance card, and any medications you are on. If you need to cancel, please give a 24 hour notice. Thank you) - Diet and Activity Activity: increase activity as tolerated Diet: diabetic diet, low fat, low cholesterol, low salt diet <Yessi Altamirano - Last Filed: 03/22/19 12:55> Date of Encounter: 03/22/19 - Discharge Diagnosis (1) Hyperlipidemia Status: Chronic Qualifiers: Hyperlipidemia type: other hyperlipidemia Qualified Code(s): E78.49 - Other hyperlipidemia; E78.4 - Other hyperlipidemia (2) DVT prophylaxis Status: Acute (3) Pancreatitis, acute Status: Acute Qualifiers: Pancreatitis type: drug induced Acute pancreatitis complication: no infection or necrosis Qualified Code(s): K85.30 - Drug induced acute pancreatitis without necrosis or infection (4) Diabetes Status: Chronic Qualifiers: Diabetes mellitus type: type 2 Diabetes mellitus terminal block assembler insulin use: without terminal block assembler use Diabetes mellitus complication status: without complication Qualified Code(s): E11.9 - Type 2 diabetes mellitus without complications (5) CKD (chronic kidney disease) stage 3, GFR 30-59 ml/min Status: Chronic Hospital course: Mr. Pickard is a 63 year old male - Time Spent with Patient Total time spent providing and/or coordinating discharge services: Date of admission: 03/21/19 10:35 Primary care physician: Esequiel Jackson Consults: 03/21/19 11:34 Consult to Nutrition [CONS] Routine Comment: Consulting Provider: NUTRITION Reason for Dietary Consult: MST Score - Constitutional Vitals: Temp Pulse Resp BP Pulse Ox 98.5 F 99 15 130/69 95 03/22/19 07:35 03/22/19 07:35 03/22/19 07:35 03/22/19 07:35 03/22/19 07:35 - Attending Attestation I examined this patient and my medical decision-making was reviewed with the Resident Physician. I agree with the documented findings, disposition and treatment plan as described except to the extent set forth below.
== END 2019-03-22 12:34 | disposition home or self-care (01) ==
LOC: 3ANU 06:29 → EMEROOARM 06:29 → SUATTDRO 10:35 → 3ANU 11:08
PROVIDERS: ADMIT Student in an Organized Health Care Education/Training Program; ATTEND Student in an Organized Health Care Education/Training Program

== ENCOUNTER 2021-06-19 14:46 | Observation (INO) ==
[2021-06-19] MEDS ORDERED: Isovue-370 500 ML BOTTLE IVP ONE (14:57)
[2021-06-19 15:11] LABS: Hematocrit 38.8 % (37.5-50.1); Hemoglobin 12.9 g/dL (12.9-16.9); Mean Corpuscular HGB Conc 33.2 g/dL (31.6-35.5); Mean Corpuscular Hemoglobin 32.7 pg (28.0-33.3); Mean Corpuscular Volume 98.5 fL (83.0-100.0); Mean Platelet Volume 8.5 fL (9.4-12.4); Platelet Count 229 K/mcL (140-400); Red Blood Count 3.94 M/mcL (4.19-5.50); Red Cell Distribution Width 13.7 % (11.5-14.5); White Blood Count 8.5 K/mcL (4.3-11.1)
[2021-06-19 16:35] LABS: BUN/Creatinine Ratio 13 (6-26); Blood Urea Nitrogen 27 mg/dL (8-23); Calcium 9.7 mg/dL (8.6-10.3); Carbon Dioxide 26 mEq/L (23-29); Chloride 106 mEq/L (98-107); Glucose 131 mg/dL (70-105); Osmolality,Calculated 297 (280-300); Potassium 4.5 mEq/L (3.5-5.1); Sodium 140 mEq/L (136-145); eGFR For African Americans 40 (> 60); eGFR For Non-African Americans 33 (> 60)
[2021-06-19 16:37] LABS: Troponin I < 0.03 ng/mL (< 0.04)
[2021-06-19] MEDS ORDERED: Aspirin Enteric Coated 325 MG Tablet PO ONE (17:06)
[2021-06-19] MEDS ORDERED: Dextrose Gel 15 GM/37.5 ML TUBE PO PRN ×2 (17:08)
[2021-06-19] MEDS ORDERED: D5% in Water 1,000 ML IVC PRN (17:08)
[2021-06-19] MEDS ORDERED: *HR* Dextrose 50 % in Water (Vial) 50 ML VIAL IVP PRN (17:08)
[2021-06-19] MEDS ORDERED: 0.9 % Sodium Chloride 500 ML IVC SCH (17:30)
[2021-06-19] MEDS ORDERED: Insulin LISPRO 300 UNITS/3 ML VIAL SUBQ SCH (21:00)
[2021-06-20] MEDS ORDERED: Perflutren Lipid Microsphere 1.3 ML in 0.9 % Sodium Chloride 8.7 ML IVP PRN ×2 (00:17→08:48)
[2021-06-20 06:13] LABS: INR 1.1; Prothrombin Time 12.4 Seconds (9.4-12.1)
[2021-06-20 06:25] LABS: Albumin 3.9 g/dL (3.5-5.7); Albumin/Globulin Ratio 1.4 (1.1-2.2); Bilirubin,Total 0.3 mg/dL (0.3-1.0); Calcium 8.8 mg/dL (8.6-10.3); Chol/HDL Ratio 4.8 (0-4.9); Globulin 2.7 g/dL (2.4-3.5); Potassium 4.2 mEq/L (3.5-5.1); Total Protein 6.6 g/dL (6.4-8.9)
[2021-06-20] MEDS: Insulin LISPRO 300 UNITS/3 ML VIAL SUBQ SCH ×2 (07:36→13:31)
[2021-06-20 08:08] LABS: Estimated Average Glucose 180 mg/dl; Hemoglobin A1C 7.9 %
[2021-06-20] MEDS ORDERED: Aspirin 81 MG TAB.CHEW PO SCH ×2 (09:00)
[2021-06-20 12:13] VITALS: PULSE 77; TEMP 97.8; O2SAT 97
[2021-06-20] MEDS ORDERED: lamoTRIgine 100 MG TABLET PO SCH (12:30)
[2021-06-20] MEDS ORDERED: BuPROPion XL (24 HR) 150 MG TABLET PO SCH (12:30)
[2021-06-20 13:55] VITALS: BP 144/64
== END 2021-06-20 16:15 | disposition home or self-care (01) ==
LOC: EMEROOARM 14:46 → 3BNU 14:46 → SUATTDRO 16:37 → 3BNU 17:51
PROVIDERS: ADMIT Student in an Organized Health Care Education/Training Program; ATTEND Internal Medicine